=== PATIENT | male | born 2000 | race Hispanic/Latino ===

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

== ENCOUNTER 2024-08-29 09:59 | Emergency (ER) | payer OTHER ==
[~2024-08-29] VITALS: Ht 175.3 cm; Wt 94.7 kg
[~2024-08-29 09:59] MED LIST: BACTRIM DS TAB1 EACH PO; CARBAMAZEPINE200 M2 PO; CARBAMAZEPINE400 MG PO; IBU800 MG PO; IBUPROFEN600 MG PO; LEVETIRACETAM500 MG PO; MAPAP325 MG PO; METHYLPHENIDATE27 MG PO; ONDANSETRON ODT8 MG PO; OXYCODON-ACETA1 EAC2 PO; PROMETHAZINE V473 M2 PO; TRAZODONE HCL50 MG PO; VENTOLIN HFA18 GM
[2024-08-29] MEDS ORDERED: LIDOCAINE & ANTACID 35 ML BTL PO ONE (10:15)
[2024-08-29 10:22] LABS: BASOPHILS 0.7 % (0-2); EOSINOPHILS 1.2 % (0-6); HEMATOCRIT 40.6 % (35.0-50.0); HEMOGLOBIN 13.9 g/dL (12.0-18.0); LYMPHOCYTES 34.1 % (24-44); MCH 30.8 (27-36); MCHC 34.2 g/dl (30-36); MCV 89.9 fl (81-99); PLATELET COUNT 272 K/uL (140-440); RBC 4.52 M/ul (4.3-5.7)
[2024-08-29 10:55] LABS: ALBUMIN 3.7 g/dL (3.4-5.0); ALBUMIN/GLOBULIN RATIO 0.97 (1.1-2.4); ALKALINE PHOSPHATASE 68 U/L (46-116); ALT (SGPT) 19 U/L (14-59); ANION GAP 10.2 (7-21); AST (SGOT) 16 U/L (15-37); BILIRUBIN, TOTAL 0.3 mg/dL (0.2-1.0); CALCIUM 9.4 mg/dL (8.5-10.1); CARBON DIOXIDE 32 mmol/L (21-32); CHLORIDE 101 mmol/L (98-107); GLOMERULAR FILTRATION RATE,EST 127 mL/min (>60); POTASSIUM 4.2 mmol/L (3.5-5.1); PROTEIN, TOTAL 7.5 g/dL (6.4-8.2); UREA NITROGEN 10 mg/dL (7-18)
[2024-08-29] MEDS ORDERED: OMEPRAZOLE20 MG PO (11:08)
[2024-08-29] MEDS ORDERED: PANTOPRAZOLE SODIUM 40 MG/10 ML VIAL IV ONE (11:15)
[2024-08-29 11:32] VITALS: BP 117/78
--- NOTE | 2024-08-30 22:32 | EKG ---
[facility] [address] [place] [address] Signed Normal sinus rhythm Normal ECG No previous ECGs available Confirmed by Flaca Argueta MD () on 08/30/2024 10:32:20 PM Electronically Signed By: FLACA ARGUETA MD 08/30/242231 PATIENT NAME: DAWNA APODACA Electrocardiogram DATE OF : [birth year] PHYSICIAN: FLACA ARGUETA MD REPORT #: [id number] REPORT IS CONFIDENTIAL AND NOT TO BE RELEASED WITHOUT AUTHORIZATION
== END 2024-08-29 11:32 | disposition home or self-care (01) ==
LOC: ED 09:59
PROVIDERS: Emergency Medicine
DX: K21.9 Gastro-esophageal reflux disease without esophagitis (principal); Z79.899 Other long term (current) drug therapy; Z88.0 Allergy status to penicillin
CPT/HCPCS: 36415; 71045; 80053; 83690; 84484; 85025; 93005; 93010; 96374; 99285-25; J2470